=== PATIENT | female | born 1945 | race Native Hawaiian/Other Pacific Islander ===

== ENCOUNTER 2016-09-20 15:19 | Inpatient (IN) | payer OTHER ==
[~2016-09-20] VITALS: Ht 162.6 cm; Wt 83.2 kg
[~2016-09-20 15:19] MED LIST: AMLO5TAB PO; AZEL137S; BUSPIRONE10 MG PO; CEFD300C2 PO; CRESTOR20 MG PO; LEVO0.0723 PO; MECLIZINE25 MG OR; MICONAZOLE EX; RANI150T78 PO; SUCR1TAB35 PO; ZESTRIL40 MG OR
[2016-09-20 15:40] VITALS: BP 173/76; TEMP 99.1
[2016-09-20 16:45] LABS: PLATELET COUNT 247 K/uL (152-353)
[2016-09-20 16:48] LABS: POTASSIUM 4.2 mmol/L (3.6-5.2); SODIUM 132 mmol/L (136-145)
[2016-09-20 17:25] VITALS: BP 157/68
[2016-09-20] MEDS ORDERED: LEVO0.0218 PO (17:25)
[2016-09-20] MEDS ORDERED: ROSU10TA PO (17:25)
[2016-09-20] MEDS ORDERED: AMLO2.5T PO (17:26)
[2016-09-20] MEDS ORDERED: PROPRANOLOL10 MG OR (17:27)
[2016-09-20 20:38] VITALS: BP 137/49; TEMP 98.8
[2016-09-20 20:53] VITALS: BP 137/49; TEMP 98.8; Ht 162.6 cm; Wt 83.2 kg
[2016-09-20] MEDS ORDERED: PRINIVIL10 MG PO (23:59)
[2016-09-21] VITALS: BP 104/40; TEMP 99.1
[2016-09-21 04:00] VITALS: BP 134/51; TEMP 100.7
[2016-09-21 08:00] VITALS: BP 141/88; TEMP 100.6
[2016-09-21 09:22] LABS: POTASSIUM 4.1 mmol/L (3.6-5.2); SODIUM 133 mmol/L (136-145)
[2016-09-21 09:24] LABS: PLATELET COUNT 190 K/uL (152-353)
[2016-09-21 12:25] VITALS: BP 107/46; TEMP 99.2
[2016-09-21 16:00] VITALS: BP 109/49; TEMP 98.1
[2016-09-21 20:00] VITALS: BP 103/49; TEMP 98.3
[2016-09-22] VITALS: BP 115/52; TEMP 98
[2016-09-22 04:00] VITALS: BP 126/47; TEMP 97.9
[2016-09-22 08:00] VITALS: BP 139/60; TEMP 99.4
[2016-09-22 12:00] VITALS: BP 125/53; TEMP 99.1
[2016-09-22 16:00] VITALS: BP 119/55; TEMP 98.9
[2016-09-22 20:00] VITALS: BP 146/75; TEMP 98.3
[2016-09-23] VITALS: BP 168/63; TEMP 98.1
[2016-09-23 04:00] VITALS: BP 140/63; TEMP 98.6
[2016-09-23 05:08] LABS: PLATELET COUNT 198 K/uL (152-353)
[2016-09-23 05:18] LABS: POTASSIUM 4.3 mmol/L (3.6-5.2); SODIUM 136 mmol/L (136-145)
[2016-09-23 08:00] VITALS: BP 138/62; TEMP 99.5
[2016-09-23 12:00] VITALS: BP 146/62; TEMP 98.8
[2016-09-23 16:00] VITALS: BP 141/60; TEMP 98.6
== END 2016-09-23 19:00 | disposition home or self-care (01) | DRG 690 ==
LOC: ED 15:19 → MED/SURG 17:10
PROVIDERS: Emergency Medicine
DX: N39.0 Urinary tract infection, site not specified (principal); E87.1 Hypo-osmolality and hyponatremia; R51 Headache; I10 Essential (primary) hypertension; R41.82 Altered mental status, unspecified
CPT/HCPCS: 36415; 80053; 81000; 82550; 83735; 84443; 84484; 85027; 86140; 87040; 87088; 93005; 94760; 96365; 96366; 96367; 96372; 96375; 99284; J0696; J1100; J1650; J1885; J2405; J3490

== ENCOUNTER 2016-11-03 12:45 | Outpatient (CLI) | payer OTHER ==
[~2016-11-03 12:45] MED LIST changes: +AMLO2.5T PO; +LEVO0.0218 PO; +PRINIVIL10 MG PO; +PROPRANOLOL10 MG OR; +ROSU10TA PO
[2016-11-03 13:33] LABS: PLATELET COUNT 297 K/uL (152-353)
[2016-11-03 14:07] LABS: POTASSIUM 5.3 mmol/L (3.6-5.2); SODIUM 137 mmol/L (136-145)
== END 2016-11-03 14:00 | disposition home or self-care (01) ==
LOC: LAB 12:45
PROVIDERS: Nurse Practitioner Family
DX: E83.42 Hypomagnesemia (principal); N39.0 Urinary tract infection, site not specified; I10 Essential (primary) hypertension; I63.9 Cerebral infarction, unspecified; R42 Dizziness and giddiness; E55.9 Vitamin D deficiency, unspecified; Z79.899 Other long term (current) drug therapy
CPT/HCPCS: 80053; 80061; 82043; 82306; 82570; 82607; 83036; 84436; 84443; 85027

== ENCOUNTER 2017-01-05 15:25 | Outpatient (CLI) | payer OTHER ==
[2017-01-05 15:48] LABS: PLATELET COUNT 274 K/uL (152-353)
[2017-01-05 16:08] LABS: POTASSIUM 4.6 mmol/L (3.6-5.2); SODIUM 139 mmol/L (136-145)
== END 2017-01-05 17:57 | disposition home or self-care (01) ==
LOC: LAB 15:25
PROVIDERS: Nurse Practitioner Family
DX: E83.42 Hypomagnesemia (principal); I10 Essential (primary) hypertension; I63.8 Other cerebral infarction; E55.9 Vitamin D deficiency, unspecified; E78.4 Other hyperlipidemia; Z79.899 Other long term (current) drug therapy; Z51.81 Encounter for therapeutic drug level monitoring
CPT/HCPCS: 80053; 80061; 84436; 84443; 85027

== ENCOUNTER 2017-03-28 14:39 | Outpatient (CLI) | payer OTHER ==
[2017-03-28 15:48] LABS: PLATELET COUNT 300 K/uL (152-353)
[2017-03-28 16:21] LABS: POTASSIUM 4.8 mmol/L (3.6-5.2); SODIUM 138 mmol/L (136-145)
== END 2017-03-28 19:13 | disposition home or self-care (01) ==
LOC: LAB 14:39
PROVIDERS: Nurse Practitioner Family
DX: Z79.899 Other long term (current) drug therapy (principal); E78.4 Other hyperlipidemia; I25.10 Atherosclerotic heart disease of native coronary artery without angina pectoris; I10 Essential (primary) hypertension; Z51.81 Encounter for therapeutic drug level monitoring
CPT/HCPCS: 80053; 80061; 83036; 84436; 84443; 85027

== ENCOUNTER 2017-06-09 09:09 | Outpatient (CLI) | payer OTHER | END 2017-06-09 19:17 | disposition home or self-care (01) | LOC: MAMMO 09:09 | DX: Z12.31 Encounter for screening mammogram for malignant neoplasm of breast (principal) ==

== ENCOUNTER 2017-07-05 16:25 | Emergency (ER) | payer OTHER ==
[~2017-07-05] VITALS: Ht 162.6 cm; Wt 78.0 kg
[2017-07-05 16:47] VITALS: TEMP 98.8
[2017-07-05 18:02] LABS: PLATELET COUNT 235 K/uL (152-353)
[2017-07-05 18:16] LABS: SODIUM 131 mmol/L (136-145)
[2017-07-05 18:54] VITALS: BP 132/78
== END 2017-07-05 18:57 | disposition home or self-care (01) ==
LOC: ED 16:25
DX: N39.0 Urinary tract infection, site not specified (principal); D72.828 Other elevated white blood cell count
CPT/HCPCS: 36415; 80053; 81000; 85027; 87088; 96372; 99283; J0696

== ENCOUNTER 2017-08-11 07:46 | Emergency (ER) | payer OTHER ==
[~2017-08-11] VITALS: Ht 162.6 cm; Wt 73.5 kg
[2017-08-11 07:45] VITALS: TEMP 98.3
[2017-08-11] MEDS ORDERED: AMLODIPINE BESYLATE PO (08:03)
[2017-08-11] MEDS ORDERED: METOPROLOL25 M1 PO (08:03)
[2017-08-11] MEDS ORDERED: ELIQUIS5 MG OR (08:04)
[2017-08-11] MEDS ORDERED: BRILINTA90 MG PO (08:04)
[2017-08-11 08:21] LABS: PLATELET COUNT 269 K/uL (152-353)
[2017-08-11 08:41] LABS: SODIUM 136 mmol/L (136-145)
[2017-08-11 10:54] VITALS: BP 138/60
== END 2017-08-11 10:56 | disposition home or self-care (01) ==
LOC: ED 07:46
PROVIDERS: Family Medicine
DX: K52.89 Other specified noninfective gastroenteritis and colitis (principal); R73.9 Hyperglycemia, unspecified
CPT/HCPCS: 36415; 80053; 82150; 83690; 84484; 85027; 87804; 96360; 96361; 96365; 96374; 96375; 99284; J0696; J2405

== ENCOUNTER 2018-06-19 08:55 | Outpatient (CLI) | payer OTHER ==
[~2018-06-19 08:55] MED LIST changes: +AMLODIPINE BESYLATE PO; +BRILINTA90 MG PO; +ELIQUIS5 MG OR; +METOPROLOL25 M1 PO
[2018-06-19 10:25] LABS: POTASSIUM 4.4 mmol/L (3.6-5.2)
== END 2018-06-19 22:30 | disposition home or self-care (01) ==
LOC: LABW 08:55
PROVIDERS: Specialist
DX: E78.5 Hyperlipidemia, unspecified (principal); I25.10 Atherosclerotic heart disease of native coronary artery without angina pectoris; I65.29 Occlusion and stenosis of unspecified carotid artery; Z79.899 Other long term (current) drug therapy; E55.9 Vitamin D deficiency, unspecified; I10 Essential (primary) hypertension
CPT/HCPCS: 36415; 80053; 80061

== ENCOUNTER 2018-08-27 08:39 | Outpatient (CLI) | payer OTHER ==
[2018-08-27 09:41] LABS: POTASSIUM 4.5 mmol/L (3.6-5.2)
== END 2018-08-27 19:56 | disposition home or self-care (01) ==
LOC: LABW 08:39
PROVIDERS: Specialist
DX: I10 Essential (primary) hypertension (principal); I25.10 Atherosclerotic heart disease of native coronary artery without angina pectoris; E78.5 Hyperlipidemia, unspecified; I48.91 Unspecified atrial fibrillation; Z79.899 Other long term (current) drug therapy
CPT/HCPCS: 36415; 80053; 80061

== ENCOUNTER 2018-10-01 10:52 | Outpatient (CLI) | payer OTHER | END 2018-10-01 23:28 | disposition home or self-care (01) | LOC: MAMMO 10:52 | DX: Z12.31 Encounter for screening mammogram for malignant neoplasm of breast (principal) ==

== ENCOUNTER 2019-02-27 09:19 | Outpatient (CLI) | payer OTHER ==
[2019-02-27 09:45] LABS: POTASSIUM 4.6 mmol/L (3.6-5.2)
== END 2019-02-27 19:56 | disposition home or self-care (01) ==
LOC: LABW 09:19
PROVIDERS: Specialist
DX: I10 Essential (primary) hypertension (principal); E78.49 Other hyperlipidemia; I25.10 Atherosclerotic heart disease of native coronary artery without angina pectoris; I48.91 Unspecified atrial fibrillation; Z79.899 Other long term (current) drug therapy; E03.2 Hypothyroidism due to medicaments and other exogenous substances
CPT/HCPCS: 36415; 80053; 80061

== ENCOUNTER 2019-06-23 12:41 | Emergency (ER) | payer OTHER ==
[~2019-06-23] VITALS: Ht 162.6 cm; Wt 79.4 kg
[2019-06-23 13:00] VITALS: TEMP 98.1
[2019-06-23 13:44] LABS: PLATELET COUNT 240 K/uL (152-353)
[2019-06-23 13:51] LABS: POTASSIUM 4.3 mmol/L (3.6-5.2)
[2019-06-23 14:03] LABS: PARTIAL THROMBOPLASTIN TIME 26.7 SECONDS (24.5-33.6)
[2019-06-23 15:04] VITALS: BP 167/61
== END 2019-06-23 13:04 | disposition home or self-care (01) ==
LOC: ED 12:41
PROVIDERS: Hospitalist
DX: R22.42 Localized swelling, mass and lump, left lower limb (principal); R00.1 Bradycardia, unspecified; Z79.01 Long term (current) use of anticoagulants
CPT/HCPCS: 80053; 85027; 85379; 85610; 85730; 93005; 96372; 99283; J1885

== ENCOUNTER 2019-09-01 00:51 | Emergency (ER) | payer OTHER ==
[~2019-09-01] VITALS: Ht 162.6 cm; Wt 81.2 kg
[2019-09-01 02:00] VITALS: BP 146/49; TEMP 98.5
== END 2019-09-01 02:00 | disposition home or self-care (01) ==
LOC: ED 00:51
DX: F41.8 Other specified anxiety disorders (principal); I15.8 Other secondary hypertension
CPT/HCPCS: 99282

== ENCOUNTER 2019-09-07 12:06 | Emergency (ER) | payer OTHER ==
[~2019-09-07] VITALS: Ht 162.6 cm; Wt 81.2 kg
[2019-09-07 13:00] LABS: PLATELET COUNT 250 K/uL (152-353)
[2019-09-07 13:11] LABS: POTASSIUM 4.5 mmol/L (3.6-5.2)
[2019-09-07 14:50] VITALS: BP 145/55; TEMP 98.2
== END 2019-09-07 14:53 | disposition home or self-care (01) ==
LOC: ED 12:06
PROVIDERS: Emergency Medicine
DX: R51 Headache (principal); R00.1 Bradycardia, unspecified
CPT/HCPCS: 80053; 85027; 93005; 96374; 96375; 99284; J2175; J2405

== ENCOUNTER 2019-09-11 09:50 | Emergency (ER) | payer OTHER ==
[~2019-09-11] VITALS: Ht 162.6 cm; Wt 77.6 kg
[2019-09-11 09:56] VITALS: TEMP 98.1
[2019-09-11 11:00] LABS: PLATELET COUNT 243 K/uL (152-353)
[2019-09-11 11:04] LABS: POTASSIUM 4.5 mmol/L (3.6-5.2)
[2019-09-11 12:30] VITALS: BP 152/59
== END 2019-09-11 12:30 | disposition home or self-care (01) ==
LOC: ED 09:50
PROVIDERS: Emergency Medicine
DX: R51 Headache (principal); F41.8 Other specified anxiety disorders; R42 Dizziness and giddiness; R00.1 Bradycardia, unspecified
CPT/HCPCS: 36415; 80053; 81000; 85027; 87502; 93005; 96365; 96375; 99284; J0696; J2175; J2405

== ENCOUNTER 2019-09-15 16:23 | Emergency (ER) | payer OTHER ==
[~2019-09-15] VITALS: Ht 162.6 cm; Wt 77.6 kg
[2019-09-15 18:25] VITALS: BP 172/62; TEMP 97.9
== END 2019-09-15 18:25 | disposition home or self-care (01) ==
LOC: ED 16:23
DX: R51 Headache (principal)
CPT/HCPCS: 96372; 99282; 99283

== ENCOUNTER 2019-09-23 17:17 | Inpatient (IN) | payer OTHER ==
[~2019-09-23] VITALS: Ht 162.6 cm; Wt 76.4 kg
[2019-09-23 17:19] VITALS: BP 179/50; TEMP 99.1
[2019-09-23 18:20] LABS: PLATELET COUNT 255 K/uL (152-353)
[2019-09-23 18:32] VITALS: BP 167/59
[2019-09-23 20:10] VITALS: BP 169/53; TEMP 97.7; Ht 162.6 cm; Wt 76.4 kg
[2019-09-24] VITALS: BP 157/48; TEMP 98.7
[2019-09-24 04:00] VITALS: BP 160/51; TEMP 97.9
[2019-09-24 06:10] LABS: POTASSIUM 4.1 mmol/L (3.6-5.2)
[2019-09-24 12:00] VITALS: BP 174/47; TEMP 97.9
[2019-09-24 12:23] LABS: POTASSIUM 4.2 mmol/L (3.6-5.2)
[2019-09-24 16:00] VITALS: BP 151/51; TEMP 98.2
[2019-09-24 20:00] VITALS: BP 118/40; TEMP 98.3
[2019-09-25] VITALS: BP 124/41; TEMP 98.8
[2019-09-25 04:00] VITALS: BP 113/42; TEMP 98.4
[2019-09-25 08:00] VITALS: BP 123/42; TEMP 98.3
[2019-09-25 12:00] VITALS: BP 140/47; TEMP 98.5
[2019-09-25 12:14] LABS: POTASSIUM 4.2 mmol/L (3.6-5.2)
--- NOTE | 2019-09-25 15:50 | NUR ---
1550 PT'S IV DC'D AT THIS TIME. TIP INTACT. NO REDNESS OR SWELLING NOTED. PT TOLERATED WELL WITHOUT DIFFICULTY. PT GIVEN DISCHARGE INSTRUCTIONS. PT INSTRUCTED TO CON'T ALL ROUTINE HOME MEDICATIONS. INCREASE SALT INTAKE. FOLLOW UP WITH PRIMARY DOCTOR OF CHOICE IN 5-7 DAYS. PT INSTRUCTED ON SIGNS AND SYMPTOMS ON LOW SODIUM. PT VERBALIZED UNDERSTANDING. PT DISCHARGED VIA W/C. ACCOMPANIED BY HAYDEE ASHLEY.
== END 2019-09-25 16:15 | disposition home or self-care (01) | DRG 641 ==
LOC: ED 17:17 → MED/SURG 18:55
PROVIDERS: Emergency Medicine; ADMIT Internal Medicine Endocrinology, Diabetes & Metabolism
DX: E87.1 Hypo-osmolality and hyponatremia (principal); R51 Headache; R11.2 Nausea with vomiting, unspecified; I10 Essential (primary) hypertension; E03.8 Other specified hypothyroidism; K21.9 Gastro-esophageal reflux disease without esophagitis; E78.49 Other hyperlipidemia
CPT/HCPCS: 36415; 80048; 80053; 81000; 83935; 84560; 85027; 96375; 99284; J1885; J2270; J2405; J2765

== ENCOUNTER 2019-12-25 10:49 | Outpatient (CLI) | payer OTHER | END 2019-12-25 19:48 | disposition home or self-care (01) | LOC: CT 10:49 | DX: R31.9 Hematuria, unspecified (principal); M54.89 Other dorsalgia ==

== ENCOUNTER 2020-02-24 16:15 | Emergency (ER) | payer OTHER ==
[~2020-02-24] VITALS: Ht 162.6 cm; Wt 80.7 kg
[2020-02-24 17:33] LABS: PLATELET COUNT 269 K/uL (152-353)
[2020-02-24 17:38] LABS: POTASSIUM 4.3 mmol/L (3.6-5.2)
[2020-02-24 20:50] VITALS: BP 162/61; TEMP 98
[2020-02-25] MEDS ORDERED: CEFDINIR300 MG PO ×2 (15:21)
== END 2020-02-24 21:00 | disposition still patient (30) ==
LOC: ED 16:15
PROVIDERS: Emergency Medicine Emergency Medical Services
DX: E87.1 Hypo-osmolality and hyponatremia (principal); N39.0 Urinary tract infection, site not specified; R10.84 Generalized abdominal pain
CPT/HCPCS: 36415; 80053; 81000; 85027; 96360; 96365; 96375; 99284; J0360; J0696; J2270

== ENCOUNTER 2020-02-24 18:14 | Observation (INO) | payer OTHER ==
[~2020-02-24] VITALS: Ht 162.6 cm; Wt 81.2 kg
[2020-02-24 22:24] VITALS: BP 156/51; TEMP 98.2; Ht 162.6 cm; Wt 81.2 kg
[2020-02-25] VITALS: BP 124/43; TEMP 98.7
[2020-02-25 03:59] VITALS: BP 142/49; TEMP 98.8
[2020-02-25 05:52] LABS: PLATELET COUNT 231 K/uL (152-353)
[2020-02-25 06:09] LABS: POTASSIUM 4.3 mmol/L (3.6-5.2)
[2020-02-25 08:00] VITALS: BP 147/54; TEMP 98.2
[2020-02-25 12:00] VITALS: BP 141/88; TEMP 98.2
[2020-02-25] MEDS ORDERED: CEFDINIR300 MG PO ×2 (15:21)
== END 2020-02-25 16:00 | disposition home or self-care (01) ==
LOC: MED/SURG 18:14
PROVIDERS: Internal Medicine Endocrinology, Diabetes & Metabolism; ADMIT Emergency Medicine Emergency Medical Services
DX: N30.00 Acute cystitis without hematuria (principal); R33.8 Other retention of urine; E87.1 Hypo-osmolality and hyponatremia; I10 Essential (primary) hypertension; E78.49 Other hyperlipidemia; K21.9 Gastro-esophageal reflux disease without esophagitis; E03.8 Other specified hypothyroidism
CPT/HCPCS: 36415; 80053; 85027; 99220; G0378; G0379; J0696

== ENCOUNTER 2020-03-13 18:39 | Observation (INO) | payer OTHER ==
[~2020-03-13] VITALS: Ht 162.6 cm; Wt 80.8 kg
[~2020-03-13 18:39] MED LIST changes: +CEFDINIR300 MG PO
[2020-03-13 19:00] VITALS: BP 175/50; TEMP 99.6
[2020-03-13 19:30] VITALS: BP 173/57
[2020-03-13 20:00] VITALS: BP 167/56
[2020-03-13 20:56] LABS: POTASSIUM 4.3 mmol/L (3.6-5.2)
[2020-03-13 21:00] VITALS: BP 170/86
[2020-03-13 21:00] LABS: PLATELET COUNT 272 K/uL (152-353)
[2020-03-13 21:09] LABS: PARTIAL THROMBOPLASTIN TIME 28.1 SECONDS (24.5-33.6)
[2020-03-13 22:00] VITALS: BP 147/53
[2020-03-13 23:00] VITALS: BP 141/50
[2020-03-14] VITALS (7 sets, daily range): BP systolic 120–142; BP diastolic 41–80; TEMP 97.5–98.6; Ht 162.6 cm; Wt 80.8 kg
[2020-03-14 08:59] LABS: PLATELET COUNT 248 K/uL (152-353)
[2020-03-14 09:04] LABS: POTASSIUM 4.9 mmol/L (3.6-5.2)
[2020-03-14 20:44] LABS: PLATELET COUNT 232 K/uL (152-353)
[2020-03-14 20:55] LABS: POTASSIUM 4.4 mmol/L (3.6-5.2)
[2020-03-15 04:00] VITALS: BP 133/43; TEMP 98.3
[2020-03-15 08:00] VITALS: BP 130/47; TEMP 98.1
[2020-03-15 08:45] LABS: POTASSIUM 4.1 mmol/L (3.6-5.2)
[2020-03-15] MEDS ORDERED: CEFDINIR300 MG PO (11:15)
[2020-03-15 11:55] VITALS: BP 154/48; TEMP 98.5
== END 2020-03-15 14:58 | disposition home or self-care (01) ==
LOC: ED 18:39 → MED/SURG 22:45
PROVIDERS: Family Medicine; ADMIT Internal Medicine Endocrinology, Diabetes & Metabolism
DX: E87.1 Hypo-osmolality and hyponatremia (principal); R51 Headache; I10 Essential (primary) hypertension; E03.8 Other specified hypothyroidism; E66.8 Other obesity; Z68.30 Body mass index [BMI] 30.0-30.9, adult; E78.49 Other hyperlipidemia; Z79.899 Other long term (current) drug therapy; Z51.81 Encounter for therapeutic drug level monitoring
CPT/HCPCS: 36415; 80048; 80053; 81000; 82728; 84439; 84443; 85027; 85379; 85610; 85730; 96360; 96365; 96366; 96374; 96375; 96376; 99220; 99284; G0378; J2175; J2405; J2550; J3490

== ENCOUNTER 2020-03-29 15:15 | Emergency (ER) | payer OTHER ==
[~2020-03-29] VITALS: Ht 162.6 cm; Wt 80.7 kg
[2020-03-29 16:39] LABS: PLATELET COUNT 303 K/uL (152-353)
[2020-03-29 16:51] LABS: POTASSIUM 4.1 mmol/L (3.6-5.2)
[2020-03-29 18:38] VITALS: BP 132/86; TEMP 97.8
== END 2020-03-29 18:38 | disposition home or self-care (01) ==
LOC: ED 15:15
PROVIDERS: Emergency Medicine Emergency Medical Services
DX: R33.8 Other retention of urine (principal); R10.32 Left lower quadrant pain; Z98.890 Other specified postprocedural states
CPT/HCPCS: 36415; 80053; 81000; 85027; 96360; 99284

== ENCOUNTER 2020-04-06 11:47 | Outpatient (CLI) | payer OTHER ==
[2020-04-06 12:49] LABS: PLATELET COUNT 310 K/uL (152-353)
[2020-04-06 13:02] LABS: POTASSIUM 4.3 mmol/L (3.6-5.2)
== END 2020-04-06 23:43 | disposition home or self-care (01) ==
LOC: LABW 11:47
PROVIDERS: Internal Medicine Nephrology
DX: E03.8 Other specified hypothyroidism (principal); F41.8 Other specified anxiety disorders; I12.9 Hypertensive chronic kidney disease with stage 1 through stage 4 chronic kidney disease, or unspecified chronic kidney disease; I25.10 Atherosclerotic heart disease of native coronary artery without angina pectoris; N17.9 Acute kidney failure, unspecified; N18.3 Chronic kidney disease, stage 3 (moderate); N20.0 Calculus of kidney; N28.1 Cyst of kidney, acquired; N28.89 Other specified disorders of kidney and ureter; Z28.21 Immunization not carried out because of patient refusal
CPT/HCPCS: 36415; 80069; 81000; 82043; 82306; 82570; 82610; 83735; 83970; 84155; 84439; 84481; 85027

== ENCOUNTER → 2020-04-26 | Emergency (ER) | payer OTHER ==
[~2020-04-26] VITALS: Ht 162.6 cm; Wt 80.7 kg
[2020-04-26 18:55] LABS: PLATELET COUNT 233 K/uL (152-353)
[2020-04-26 19:02] LABS: POTASSIUM 4.6 mmol/L (3.6-5.2); SODIUM 136 mmol/L (136-145)
[2020-04-26 19:38] LABS: PARTIAL THROMBOPLASTIN TIME 27.1 SECONDS (24.5-33.6)
[2020-04-26 20:40] VITALS: BP 152/96; TEMP 98.3
== END ==
LOC: ED 17:53
PROVIDERS: Hospitalist
DX: R53.1 Weakness (principal); E86.0 Dehydration; R06.02 Shortness of breath
CPT/HCPCS: 36415; 80053; 82550; 83880; 84484; 85027; 85610; 85730; 93005; 96360; 99284

== ENCOUNTER 2020-06-02 11:01 | Outpatient (CLI) | payer OTHER | END 2020-06-02 22:27 | disposition home or self-care (01) | LOC: MAMMO 11:01 | PROVIDERS: ATTEND Nurse Practitioner Family | DX: Z12.31 Encounter for screening mammogram for malignant neoplasm of breast (principal) ==

== ENCOUNTER 2020-06-10 10:51 | Outpatient (CLI) | payer OTHER ==
[2020-06-10 11:43] LABS: POTASSIUM 4.6 mmol/L (3.6-5.2)
== END 2020-06-10 21:06 | disposition home or self-care (01) ==
LOC: LABW 10:51
PROVIDERS: ATTEND Internal Medicine Nephrology
DX: N17.8 Other acute kidney failure (principal); N18.30 Chronic kidney disease, stage 3 unspecified; N28.89 Other specified disorders of kidney and ureter
CPT/HCPCS: 36415; 80048

== ENCOUNTER 2020-07-01 10:07 | Outpatient (CLI) | payer OTHER ==
[2020-07-01 10:36] LABS: POTASSIUM 4.7 mmol/L (3.6-5.2)
== END 2020-07-01 20:02 | disposition home or self-care (01) ==
LOC: LABW 10:07
PROVIDERS: ATTEND Internal Medicine Nephrology
DX: E03.8 Other specified hypothyroidism (principal); I12.9 Hypertensive chronic kidney disease with stage 1 through stage 4 chronic kidney disease, or unspecified chronic kidney disease; N17.9 Acute kidney failure, unspecified; N18.30 Chronic kidney disease, stage 3 unspecified; N28.89 Other specified disorders of kidney and ureter
CPT/HCPCS: 36415; 80069

== ENCOUNTER 2020-08-23 16:53 | Emergency (ER) | payer OTHER ==
[~2020-08-23] VITALS: Ht 162.6 cm; Wt 79.4 kg
[2020-08-23 17:15] VITALS: TEMP 97.5
[2020-08-23 18:49] LABS: POTASSIUM 4.5 mmol/L (3.6-5.2)
[2020-08-23 18:59] LABS: PLATELET COUNT 273 K/uL (152-353)
[2020-08-23 20:10] VITALS: BP 142/58
== END 2020-08-23 20:10 | disposition home or self-care (01) ==
LOC: ED 16:53
PROVIDERS: Family Medicine
DX: N39.0 Urinary tract infection, site not specified (principal); R10.84 Generalized abdominal pain
CPT/HCPCS: 80053; 81000; 85027; 87086; 87088; 96360; 96365; 96375; 99284; J0696; J1885

== ENCOUNTER 2020-11-02 10:06 | Outpatient (CLI) | payer OTHER | END 2020-11-02 19:17 | disposition home or self-care (01) | LOC: CT 10:06 | PROVIDERS: ATTEND Nurse Practitioner Family | DX: I10 Essential (primary) hypertension (principal); R19.09 Other intra-abdominal and pelvic swelling, mass and lump; E03.8 Other specified hypothyroidism; N19 Unspecified kidney failure ==

== ENCOUNTER 2020-12-03 12:35 | Outpatient (CLI) | payer OTHER | END 2020-12-03 22:49 | disposition home or self-care (01) | LOC: RAD 12:35 | PROVIDERS: ATTEND Internal Medicine Rheumatology | DX: M85.89 Other specified disorders of bone density and structure, multiple sites (principal); M89.8X8 Other specified disorders of bone, other site ==

== ENCOUNTER 2020-12-10 10:48 | Outpatient (CLI) | payer OTHER ==
[2020-12-10 11:21] LABS: POTASSIUM 4.6 mmol/L (3.6-5.2)
== END 2020-12-10 22:43 | disposition home or self-care (01) ==
LOC: LABW 10:48
PROVIDERS: ATTEND Nurse Practitioner Family
DX: E87.5 Hyperkalemia (principal)
CPT/HCPCS: 36415; 80053

== ENCOUNTER 2020-12-31 19:09 | Emergency (ER) | payer OTHER ==
[~2020-12-31] VITALS: Ht 162.6 cm; Wt 77.1 kg
[2020-12-31 19:29] VITALS: TEMP 98.7
[2020-12-31 21:33] LABS: PLATELET COUNT 263 K/uL (152-353)
[2020-12-31 21:52] LABS: SODIUM 136 mmol/L (136-145)
[2020-12-31 23:00] VITALS: BP 160/51
== END 2020-12-31 23:26 | disposition short-term general hospital (02) ==
LOC: ED 19:09
PROVIDERS: Emergency Medicine
DX: I63.9 Cerebral infarction, unspecified (principal); I61.4 Nontraumatic intracerebral hemorrhage in cerebellum
CPT/HCPCS: 36415; 80053; 82550; 83735; 84484; 85027; 93005; 96374; 99285; J2060

== ENCOUNTER 2021-04-13 12:35 | Outpatient (CLI) | payer OTHER | END 2021-04-13 19:39 | disposition home or self-care (01) | LOC: CT 12:35 | PROVIDERS: ATTEND Internal Medicine | DX: J32.9 Chronic sinusitis, unspecified (principal) ==

== ENCOUNTER 2021-06-03 15:56 | Emergency (ER) | payer OTHER ==
[~2021-06-03] VITALS: Ht 162.6 cm; Wt 77.1 kg
[2021-06-03 16:31] LABS: PLATELET COUNT 266 K/uL (152-353)
[2021-06-03 16:37] LABS: POTASSIUM 4.6 mmol/L (3.6-5.2)
[2021-06-03 17:15] VITALS: BP 155/53; TEMP 98
== END 2021-06-03 17:15 | disposition home or self-care (01) ==
LOC: ED 15:56
PROVIDERS: Emergency Medicine
PROC: 0T9B70Z Drainage of Bladder with Drainage Device, Via Natural or Artificial Opening (ICD-10-PCS; principal; 2021-06-03)
DX: R33.8 Other retention of urine (principal); R60.0 Localized edema; F41.8 Other specified anxiety disorders
CPT/HCPCS: 36415; 51702; 80048; 81000; 83880; 85027; 96374; 99284; J1940

== ENCOUNTER 2021-06-11 13:25 | Outpatient (CLI) | payer OTHER | END 2021-06-11 19:03 | disposition home or self-care (01) | LOC: MAMMO 13:25 | PROVIDERS: ATTEND Nurse Practitioner Family | DX: Z12.31 Encounter for screening mammogram for malignant neoplasm of breast (principal) ==

== ENCOUNTER 2021-07-23 15:51 | Emergency (ER) | payer OTHER ==
[~2021-07-23] VITALS: Ht 162.6 cm; Wt 77.1 kg
[2021-07-23 16:00] VITALS: TEMP 97.1
[2021-07-23 17:50] LABS: PLATELET COUNT 172 K/uL (152-353)
[2021-07-23 18:02] LABS: POTASSIUM 3.5 mmol/L (3.6-5.2)
[2021-07-23 19:03] VITALS: BP 125/67
== END 2021-07-23 19:03 | disposition home or self-care (01) ==
LOC: ED 15:51
PROVIDERS: Hospitalist
DX: R07.89 Other chest pain (principal); R09.1 Pleurisy; J06.9 Acute upper respiratory infection, unspecified
CPT/HCPCS: 80053; 82550; 83880; 84484; 85027; 85379; 85610; 85730; 93005; 96372; 99283; J1100; J1885

== ENCOUNTER 2021-08-23 15:54 | Outpatient (CLI) | payer OTHER | END 2021-08-23 18:56 | disposition home or self-care (01) | LOC: RAD 15:54 | PROVIDERS: ATTEND Nurse Practitioner Family | DX: J32.8 Other chronic sinusitis (principal); M54.6 Pain in thoracic spine; R06.02 Shortness of breath ==

== ENCOUNTER 2021-10-19 15:02 | Outpatient (CLI) | payer OTHER | END 2021-10-19 18:56 | disposition home or self-care (01) | LOC: CT 15:02 | PROVIDERS: ATTEND Nurse Practitioner Family | DX: R31.9 Hematuria, unspecified (principal); M54.89 Other dorsalgia; R10.2 Pelvic and perineal pain; R68.83 Chills (without fever) ==

== ENCOUNTER 2021-11-26 00:10 | Emergency (ER) | payer OTHER ==
[~2021-11-26] VITALS: Ht 162.6 cm; Wt 79.4 kg
[2021-11-26 01:15] LABS: POTASSIUM 4.1 mmol/L (3.6-5.2)
[2021-11-26 01:17] LABS: PLATELET COUNT 235 K/uL (152-353)
[2021-11-26 02:55] VITALS: BP 154/60; TEMP 98.1
== END 2021-11-26 02:55 | disposition home or self-care (01) ==
LOC: ED 00:10
PROVIDERS: Emergency Medicine
DX: R00.2 Palpitations (principal)
CPT/HCPCS: 36415; 80053; 81000; 83880; 84443; 84484; 85027; 85610; 93005; 99283

== ENCOUNTER 2022-11-08 09:11 | Outpatient (CLI) | payer OTHER | END 2022-11-08 18:59 | disposition home or self-care (01) | LOC: CT 09:11 | PROVIDERS: ATTEND Nurse Practitioner Family | DX: R19.00 Intra-abdominal and pelvic swelling, mass and lump, unspecified site (principal); Z12.31 Encounter for screening mammogram for malignant neoplasm of breast ==

== ENCOUNTER 2023-02-18 09:23 | Emergency (ER) | payer OTHER ==
[~2023-02-18] VITALS: Ht 162.6 cm; Wt 77.1 kg
[2023-02-18 11:20] VITALS: BP 128/75; TEMP 97.8
== END 2023-02-18 11:20 | disposition home or self-care (01) ==
LOC: ED 09:23
DX: M54.30 Sciatica, unspecified side (principal); S39.012A Strain of muscle, fascia and tendon of lower back, initial encounter
CPT/HCPCS: 96372; 99283; J1100

== ENCOUNTER 2023-02-19 10:26 | Emergency (ER) | payer OTHER ==
[~2023-02-19] VITALS: Ht 162.6 cm; Wt 77.1 kg
[2023-02-19 12:51] VITALS: BP 158/51; TEMP 98
== END 2023-02-19 12:51 | disposition home or self-care (01) ==
LOC: ED 10:26
DX: M54.30 Sciatica, unspecified side (principal); S39.012A Strain of muscle, fascia and tendon of lower back, initial encounter
CPT/HCPCS: 96372; 99283; J1100

== ENCOUNTER 2023-03-11 14:46 | Emergency (ER) | payer OTHER ==
[~2023-03-11] VITALS: Ht 162.6 cm; Wt 81.6 kg
[2023-03-11 14:50] VITALS: BP 133/55; TEMP 97.7
== END 2023-03-11 16:24 | disposition home or self-care (01) ==
LOC: ED 14:46
DX: M51.16 Intervertebral disc disorders with radiculopathy, lumbar region (principal); I12.9 Hypertensive chronic kidney disease with stage 1 through stage 4 chronic kidney disease, or unspecified chronic kidney disease; N18.9 Chronic kidney disease, unspecified
CPT/HCPCS: 99283; J1885

== ENCOUNTER 2023-03-16 10:03 | Outpatient (CLI) | payer OTHER | END 2023-03-16 18:42 | disposition home or self-care (01) | LOC: MRI 10:03 → LABW 10:03 → MRI 10:30 | PROVIDERS: ATTEND Nurse Practitioner Family | DX: M25.552 Pain in left hip (principal); M43.16 Spondylolisthesis, lumbar region; M51.36 Other intervertebral disc degeneration, lumbar region; M48.061 Spinal stenosis, lumbar region without neurogenic claudication; M54.59 Other low back pain; M79.605 Pain in left leg; Z86.79 Personal history of other diseases of the circulatory system | CPT/HCPCS: 36415; 82565; 84520 ==

== ENCOUNTER 2023-04-13 16:13 | Outpatient (CLI) | payer OTHER | END 2023-04-13 20:02 | disposition home or self-care (01) | LOC: LABW 16:13 | PROVIDERS: ATTEND Neurological Surgery | DX: M54.40 Lumbago with sciatica, unspecified side (principal) | CPT/HCPCS: 36415; 82565; 84520 ==

== ENCOUNTER 2023-08-21 12:33 | Outpatient (CLI) | payer OTHER | END 2023-08-21 19:21 | disposition home or self-care (01) | LOC: CT 12:33 | PROVIDERS: ATTEND Nurse Practitioner Family | DX: R10.9 Unspecified abdominal pain (principal); Z87.19 Personal history of other diseases of the digestive system; Z87.442 Personal history of urinary calculi; R11.0 Nausea; H65.93 Unspecified nonsuppurative otitis media, bilateral; J30.1 Allergic rhinitis due to pollen | CPT/HCPCS: 82565; 84520; Q9963 ==